=== PATIENT | male | born 1955 | race Caucasian/White ===

== ENCOUNTER 2024-11-10 05:52 | Day surgery (SDC) | payer BC, SELFPAY ==
[2024-10-20 13:16] VITALS: BMI 37.9
[2024-10-20 13:47] LABS: % Basophils 0.4 % (0-2); % Eosinophils 3.8 % (0-6); % Immature Granulocytes 0.3 % (0-0.5); % Lymphocytes 22.3 % (20.5-51.1); % Monocytes 9.3 % (1.7-9.3); % Neutrophils 63.9 % (42.2-75.2); Absolute Eosinophils 0.3 10^3/uL (0-0.7); Absolute Lymphocytes 1.7 10^3/uL (1.2-3.4); Absolute Monocytes 0.7 10^3/uL (0.1-0.6); Hemoglobin 13.6 g/dL (13.0-18.0); Mean Corp Hgb Conc. 33.2 g/dL (33.0-37.0); Mean Corpuscular Hgb 29.5 pg (27.0-31.0); Mean Corpuscular Volume 88.9 fL (80.0-94.0); Mean Platelet Volume 11.6 fL (7.4-10.4); Nucleated Red Blood Cells % 0 % (-); Platelet Count 216 10^3/uL (130-400); Red Blood Cell Count 4.61 10^6/uL (4.70-6.10); Red Cell Dist. Width 14.3 % (11.5-14.5); White Blood Cell Count 7.8 10^3/uL (4.8-10.8)
[2024-10-20 14:09] LABS: PT 14.7 Sec (11.4-14.6)
[2024-10-20 14:17] LABS: ALT (SGPT) 21 U/L (0-50); AST (SGOT) 24 U/L (17-59); Albumin 4.1 g/dl (3.5-5.0); Alkaline Phosphatase 92 U/L (38-126); Blood Urea Nitrogen 30 mg/dl (9-20); Calcium 9.9 mg/dl (8.4-10.2); Carbon Dioxide 21 mmol/L (22-30); Chloride 106 mmol/L (98-107); Estimated Creatinine Clearance 83 ml/min; Glucose 184 mg/dl (70-99); Potassium 3.9 mmol/L (3.5-5.1); Sodium 141 mmol/L (135-145); Total Bilirubin 0.7 mg/dl (0.2-1.3); Total Protein 6.4 g/dl (6.3-8.2); eGFR > 60.00
[2024-11-10] VITALS (24 sets, daily range): BP systolic 89–148; BP diastolic 61–90; BMI 37.4
[2024-11-10 07:10] LABS: Glucose - Point of Care 131 mg/dl (70-99)
[2024-11-10 08:54] LABS: ACT-LR - POC 218 Seconds (116-155)
[2024-11-10 09:13] LABS: ACT-LR - POC 273 Seconds (116-155)
[2024-11-10 09:33] LABS: ACT-LR - POC 268 Seconds (116-155)
[2024-11-10 11:17] LABS: Glucose - Point of Care 161 mg/dl (70-99)
--- NOTE | 2024-11-10 14:27 | PTCARENOTE ---
Dr Kowalski at pt bedside speaking to pt.
--- NOTE | 2024-11-10 15:25 | W.PN.UPDATE ---
Update Note
Progress Note Update
69 yo WM s/p PVI (Same day). He denies cp, sob, julianna diet, voiding, amb w/o dizziness, EKG SR with PAC's and PVC's, R fem site c/d/i no HT, soft. He will resume Eliquis, dofetilide and nadolol tonight at home. Activity restrictions reviewed. He will
f/u Dr. Kowalski in 1 mo and continue cardiac care with Dr. Lovelace. He is for d/c home after 3pm.
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
== END 2024-11-10 15:25 | disposition home or self-care (01) ==
LOC: CATH 05:52
PROVIDERS: ATTENDING PHYSICIAN Internal Medicine Cardiovascular Disease; FAMILY PHYSICIAN Internal Medicine; OTHER PHYSICIAN Internal Medicine Cardiovascular Disease
DX: I48.91 Unspecified atrial fibrillation (principal); I49.8 Other specified cardiac arrhythmias; G47.30 Sleep apnea, unspecified; E66.9 Obesity, unspecified; Z68.37 Body mass index [BMI] 37.0-37.9, adult; I10 Essential (primary) hypertension; E78.5 Hyperlipidemia, unspecified; E11.9 Type 2 diabetes mellitus without complications; Z79.84 Long term (current) use of oral hypoglycemic drugs; Z86.73 Personal history of transient ischemic attack (TIA), and cerebral infarction without residual deficits; Z90.5 Acquired absence of kidney; Z85.528 Personal history of other malignant neoplasm of kidney; M19.90 Unspecified osteoarthritis, unspecified site; Z98.890 Other specified postprocedural states; Z90.49 Acquired absence of other specified parts of digestive tract; Z96.653 Presence of artificial knee joint, bilateral; Z87.442 Personal history of urinary calculi; Z79.01 Long term (current) use of anticoagulants; Z79.899 Other long term (current) drug therapy; Z98.84 Bariatric surgery status; Z88.1 Allergy status to other antibiotic agents; Z91.048 Other nonmedicinal substance allergy status
CPT/HCPCS: C1894; C1730; C1766; C1733; C1892; C1759; 36415; 80053; 82962; 83735; 85025; 85347; 85610; 86850; 86900; 86901; 93005; 93655; 93656; 93657